=== PATIENT | female | born 1950 | race Caucasian/White ===

== ENCOUNTER 2018-06-15 08:29 | Outpatient (CLI) | payer MEDICARE, MEDICAID ==
[2018-06-15 09:10] LABS: BASOPHILS # (AUTO) 0.1 10^3/uL (0.0-0.1); BASOPHILS % (AUTO) 1.1 %; EOSINOPHILS # (AUTO) 0.2 10^3/uL (0.0-0.7); EOSINOPHILS % (AUTO) 2.8 %; HGB - HEMOGLOBIN 13.9 g/dL (12.0-16.0); LYMPHOCYTES # (AUTO) 3.1 10^3/uL (1.5-3.5); LYMPHOCYTES % (AUTO) 45.2 %; MEAN CORPUSCULAR HEMOGLOBIN 30.7 pg (27.0-31.0); MEAN CORPUSCULAR HGB CONC 34.5 g/dL (32.0-36.0); MEAN CORPUSCULAR VOLUME 88.9 fL (81.0-99.0); MEAN PLATELET VOLUME 7.4 fL (7.9-10.8); MONOCYTES # (AUTO) 0.5 10^3/uL (0.0-1.0); MONOCYTES % (AUTO) 7.3 %; NEUTROPHILS % (AUTO) 43.6 %; PLT - PLATELET COUNT 340 10^3/uL (130-450); RED BLOOD COUNT 4.54 10^6/uL (4.20-5.40); WHITE BLOOD COUNT 6.9 x10^3/uL (4.8-10.8)
[2018-06-15 09:19] LABS: ALBUMIN 4.5 g/dL (3.2-5.5); ALBUMIN/GLOBULIN RATIO 1.6 (1.0-2.2); BILIRUBIN,TOTAL 0.6 mg/dL (0.2-1.0); CALCIUM 9.1 mg/dL (8.5-10.3); CREATININE 0.4 mg/dL (0.4-1.0); TOTAL PROTEIN 7.3 g/dL (6.7-8.2)
[2018-06-15 11:48] LABS: THYROID STIMULATING HORMONE 2.83 uIU/mL (0.34-5.60)
[2018-06-15 11:50] LABS: FREE T4 (FREE THYROXINE) 0.93 ng/dL (0.58-1.64)
[2018-06-15 11:55] LABS: TOTAL T3 0.98 ng/mL (0.87-1.78)
== END 2018-06-15 08:30 | disposition home or self-care (01) ==
LOC: LAB 08:29
PROVIDERS: ATTEND Naprapath
DX: Z13.0 Encounter for screening for diseases of the blood and blood-forming organs and certain disorders involving the immune mechanism (principal); E06.3 Autoimmune thyroiditis; Z13.29 Encounter for screening for other suspected endocrine disorder; Z13.1 Encounter for screening for diabetes mellitus; Z13.228 Encounter for screening for other metabolic disorders; Z13.21 Encounter for screening for nutritional disorder
CPT/HCPCS: 36415; 80053; 82306; 84439; 84443; 84480; 84482; 85025; 86800

== ENCOUNTER 2018-06-15 17:49 | Outpatient (CLI) | payer MEDICARE, MEDICAID ==
--- NOTE | 2018-06-17 22:13 | Ultrasound Report ---
Reason: CHRONIC RLQ ABD PAIN HX OF UTERINE FIBROIDS Procedure Date: 06/15/2018 Accession Number: [id number] / [id number] Procedure: US - Pelvic w/Transvaginal CPT Code: FULL RESULT: EXAM: PELVIC ULTRASOUND EXAM DATE: 06/15/2018 05:58 PM. CLINICAL HISTORY: CHRONIC RLQ ABD PAIN HX OF UTERINE FIBROIDS. COMPARISON: CT 01/09/2016. TECHNIQUE: Realtime transabdominal pelvic scan performed to identify the uterus and adnexa and as an overview of other pelvic structures, followed by transvaginal scan to provide greater detail of the uterus and adnexa, with static image documentation. FINDINGS: Uterus: 8.6 x 6.8 x 5.7 cm. Anteverted position. Bulky and heterogeneous. Masses: Multiple intramural leiomyomas are present. The largest, in the anterior myometrium, measures 4.1 cm. Endometrium: Difficult to visualize, due to multiple leiomyomas distorting. Cervix: Unremarkable. Right Ovary: Not confidently identified. No right adnexal mass appreciated. Left Ovary: Not confidently identified. No left adnexal mass appreciated. Free Fluid: None. Other: None. IMPRESSION: Bulky, leiomyomatous uterus. Nonvisualization of the endometrium and both ovaries, due to leiomyomas. RADIA
== END 2018-06-15 17:50 | disposition home or self-care (01) ==
LOC: DI 17:49
PROVIDERS: ATTEND Naprapath
DX: D25.1 Intramural leiomyoma of uterus (principal); D25.9 Leiomyoma of uterus, unspecified; Z13.0 Encounter for screening for diseases of the blood and blood-forming organs and certain disorders involving the immune mechanism; Z13.1 Encounter for screening for diabetes mellitus; Z13.228 Encounter for screening for other metabolic disorders; Z13.21 Encounter for screening for nutritional disorder; Z13.29 Encounter for screening for other suspected endocrine disorder; E06.3 Autoimmune thyroiditis
CPT/HCPCS: 36415; 76830; 76856; 80053; 82306; 84439; 84443; 84480; 84482; 85025; 86800

== ENCOUNTER 2018-08-03 05:52 | Emergency (ER) | payer MEDICARE, MEDICAID ==
[2018-08-03 06:04] VITALS: BP 145/93
[2018-08-03 06:25] LABS: BASOPHILS % (AUTO) 0.7 %; EOSINOPHILS # (AUTO) 0.1 10^3/uL (0.0-0.7); EOSINOPHILS % (AUTO) 2.1 %; HGB - HEMOGLOBIN 13.4 g/dL (12.0-16.0); LYMPHOCYTES % (AUTO) 30.9 %; MEAN CORPUSCULAR HEMOGLOBIN 30.4 pg (27.0-31.0); MEAN CORPUSCULAR HGB CONC 32.7 g/dL (32.0-36.0); MEAN PLATELET VOLUME 7.3 fL (7.9-10.8); MONOCYTES # (AUTO) 0.6 10^3/uL (0.0-1.0); MONOCYTES % (AUTO) 8.9 %; NEUTROPHILS # (AUTO) 3.8 10^3/uL (1.5-6.6); NEUTROPHILS % (AUTO) 57.4 %; PLT - PLATELET COUNT 294 10^3/uL (130-450); RED BLOOD COUNT 4.43 10^6/uL (4.20-5.40); RED CELL DISTRIBUTION WIDTH 13.3 % (12.0-15.0); WHITE BLOOD COUNT 6.6 x10^3/uL (4.8-10.8)
[2018-08-03 06:32] LABS: BILIRUBIN,URINE NEGATIVE (NEGATIVE); GLUCOSE, URINE (UA) NEGATIVE (NEGATIVE); KETONES,URINE (UA) NEGATIVE (NEGATIVE); LEUKOCYTE ESTERASE, URINE NEGATIVE (NEGATIVE); NITRITE,URINE NEGATIVE (NEGATIVE); OCCULT BLOOD,URINE TRACE-INTA (NEGATIVE); PH,URINE 6.5 PH (5.0-7.5); PROTEIN,URINE NEGATIVE (NEGATIVE); UROBILINOGEN,URINE 0.2 (NORMAL) E.U./dL (NORMAL)
[2018-08-03 06:37] LABS: ALBUMIN 4.3 g/dL (3.2-5.5); ALBUMIN/GLOBULIN RATIO 1.5 (1.0-2.2); BILIRUBIN,TOTAL 0.6 mg/dL (0.2-1.0); CALCIUM 9.2 mg/dL (8.5-10.3); CREATININE 0.5 mg/dL (0.4-1.0); TOTAL PROTEIN 7.2 g/dL (6.7-8.2)
[2018-08-03 06:40] LABS: CLARITY,URINE CLEAR (CLEAR)
--- NOTE | 2018-08-03 07:34 | ED Physician Documentation ---
PD HPI ABD PAIN - Stated complaint Stated Complaint: ABD PX - Chief complaint Chief Complaint: Abd Pain - History obtained from History obtained from: Patient - History of Present Illness Timing - onset: How many years ago (many) Timing - duration: Days (2) Timing - details: Gradual onset, Still present, Waxing and waning Quality: Sharp, Pain Location: RLQ Improved by: Laying still Worsened by: Moving, Breathing, Position, Palpation. No: Eating Associated symptoms: No: Fever, Nausea, Vomiting, Hematemesis, Diarrhea, Constipation, Melena, Hematochezia, Dysuria, Hematuria, Chest pain, Dizzy, Near syncope / syncope, Loss of appetite, Weight loss, Vaginal bleeding Similar symptoms before: Diagnosis (uterine fibroid, musculoskeletal pain) Recently seen: Clinic, Emergency Dept - Additional information Additional information: 68-year-old female with a history of hashimotos thyroiditis and arthritis has a history of right lower quadrant abdominal pain that is present daily and associated with movement and position has had an increase in her symptoms of pain over the past 2 days. She indicates that she has had more of this pain this year than previously and she has been into see a customer advocate up at [facility] and she is been into see physicians at [facility] in [place]. She has had workup including CT and ultrasound more than one time. She does know she has uterine fibroids which are large and calcified. She has some reservation about the recommendation for hysterectomy. She does state that this pain is the same pain that she has had previously and not a new pain. She has not had fever she has not had new or different symptoms. Review of Systems Constitutional: denies: Fever Eyes: denies: Decreased vision Ears: denies: Ear pain Nose: denies: Rhinorrhea / runny nose, Congestion Throat: denies: Sore throat Cardiac: denies: Chest pain / pressure, Palpitations Respiratory: reports: Dyspnea. denies: Cough GI: reports: Abdominal Pain. 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 INSPECTOR: Fibroids : None HEENT: None Psych: None Musculoskeletal: Rheumatoid arthritis Derm: None - Past Surgical History Past Surgical History: Yes General: Appendectomy /RUG INSPECTOR: section - Present Medications Home Medications: Ambulatory Orders Medication Instructions Recorded Confirmed No Known Home Medications 08/03/18 08/03/18 - Allergies Allergies/Adverse Reactions: Allergies Allergy/AdvReac Type Severity Reaction Status Date / Time antibiotics Allergy Nausea Uncoded 08/03/18 06:03 - Social History Does the pt smoke?: No Smoking Status: Never smoker Does the pt drink ETOH?: Yes Does the pt have substance abuse?: No - Immunizations Immunizations are current?: No - POLST Patient has POLST: No PD ED PE NORMAL - Vitals Vital signs reviewed: Yes (hypertensive mild ) - General General: Alert and oriented X 3, No acute distress, Well developed/nourished - HEENT HEENT: Atraumatic, PERRL, EOMI - Neck Neck: Supple, no meningeal sign, No bony TTP - Cardiac Cardiac: RRR, No murmur - Respiratory Respiratory: No respiratory distress, Clear bilaterally - Abdomen Abdomen: Soft, Other (specific point tenderness deep lateral right lower quadrant inside the pelvic brim no garding or rebound or referred tenderness. No pain with valsalva but pain is worse with deep breath. ) - Back Back: No CVA TTP, No spinal TTP - Derm Derm: Normal color, Warm and dry, No rash - Extremities Extremities: No deformity, No edema - Neuro Neuro: Alert and oriented X 3, rn charge 2-12 intact, No motor deficit, No sensory deficit, Normal speech Eye Opening: Spontaneous Motor: Obeys Commands Verbal: Oriented GCS Score: 15 - Psych Psych: Normal mood, Normal affect Results - Vitals Vitals: Vital Signs - 24 hr 08/03/18 05:58 Temperature 36.8 C Heart Rate 96 Respiratory 18 Rate Blood Pressure 145/93 H O2 Saturation 100 Oxygen O2 Source Room air - Labs Labs: Laboratory Tests 08/03/18 08/03/18 08/03/18 06:08 06:15 06:15 WBC 6.6 RBC 4.43 Hgb 13.4 Hct 41.2 MCV 93.0 MCH 30.4 MCHC 32.7 RDW 13.3 Plt Count 294 MPV 7.3 L Neut # (Auto) 3.8 Lymph # (Auto) 2.0 [place] # (Auto) 0.6 Eos # (Auto) 0.1 Baso # (Auto) 0.0 Absolute Nucleated RBC 0.00 Nucleated RBC % 0.0 Sodium 136 Potassium 3.6 Chloride 100 L Carbon Dioxide 27 Anion Gap 9.0 BUN 15 Creatinine 0.5 Estimated GFR (MDRD) 122 Glucose 99 Calcium 9.2 Total Bilirubin 0.6 AST 22 ALT 21 Alkaline Phosphatase 82 Total Protein 7.2 Albumin 4.3 Globulin 2.9 Albumin/Globulin Ratio 1.5 Lipase 41 Urine Color YELLOW Urine Clarity CLEAR Urine pH 6.5 Ur Specific [place] 1.010 Urine Protein NEGATIVE Urine Glucose (UA) NEGATIVE Urine Ketones NEGATIVE Urine Occult Blood TRACE-INTA Urine Nitrite NEGATIVE Urine Bilirubin NEGATIVE Urine Urobilinogen 0.2 (NORMAL) Ur Leukocyte Esterase NEGATIVE Ur Microscopic Review NOT INDICATED Urine Culture Comments NOT INDICATED Procedures - Bedside sono Bedside sono by EMP: With use of bedside ultrasound the right kidney is imaged it is sonographically nontender there is some mild hydronephrosis. Examination of bladder shows there is urinary jets present from both left and right side. PD MEDICAL DECISION MAKING - ED course Complexity details: reviewed old records, reviewed results, re-evaluated patient, considered differential, d/w patient ED course: 68-year-old female who has had a problem with this specific pain for years has no specific change with the exception of increased pain for the past 2 days. She has had a recent workup including ultrasound of the pelvis and CT scan of the abdomen and pelvis. These all indicate presence of uterine fibroids and are likely the cause of this patient's pain. She has been reluctant to proceed with hysterectomy because of concerns of side effects of surgery. She has been looking for a physician to guide her through this process and she has not connected.Review of her blood work is nearly identical to blood work done 2 y ears ago for similar presentation. At that point she was referred to [facility] and to the surgical center. She did not follow-up there. She refuses pain medication today. I discussed the patient's results with her and have reviewed her scans and have pulled up mechanical service representative portions of the scans to share with the patient to detail the extent of the fibroids their position and their possible relation to her pain. She was appreciative of this attention and I have asked her to follow-up with [facility] and specifically she is wanting to follow-up with a woman customer advocate and I have referred her to to Dr. Blevins. I am not finding a specific new problem that requires emergent attention today. Departure - Departure Disposition: Home, Self Care Clinical Impression: Uterine fibroid Qualifiers: Uterine leiomyoma location: unspecified location Qualified Code(s): D25.9 - Leiomyoma of uterus, unspecified Instructions: ED Fibroids Follow-Up: Sherry Pierce DO [Provider Admit Priv/Credential] -
== END 2018-08-03 08:00 | disposition home or self-care (01) ==
LOC: ED 05:52
DX: D25.9 Leiomyoma of uterus, unspecified (principal); N13.30 Unspecified hydronephrosis; M06.9 Rheumatoid arthritis, unspecified
CPT/HCPCS: 36415; 80053; 81001; 81003; 83690; 85025; 87086; 99283

== ENCOUNTER 2019-03-29 18:27 | Emergency (ER) | payer MEDICARE, MEDICAID ==
[2019-03-29 19:30] LABS: BASOPHILS % (AUTO) 0.4 %; EOSINOPHILS # (AUTO) 0.2 10^3/uL (0.0-0.7); EOSINOPHILS % (AUTO) 2.1 %; HGB - HEMOGLOBIN 13.3 g/dL (12.0-16.0); LYMPHOCYTES # (AUTO) 2.7 10^3/uL (1.5-3.5); LYMPHOCYTES % (AUTO) 33.4 %; MEAN CORPUSCULAR HEMOGLOBIN 30.6 pg (27.0-31.0); MEAN CORPUSCULAR HGB CONC 32.6 g/dL (32.0-36.0); MEAN CORPUSCULAR VOLUME 93.8 fL (81.0-99.0); MEAN PLATELET VOLUME 9.5 fL (7.9-10.8); MONOCYTES # (AUTO) 0.6 10^3/uL (0.0-1.0); MONOCYTES % (AUTO) 7.7 %; NEUTROPHILS # (AUTO) 4.6 10^3/uL (1.5-6.6); NEUTROPHILS % (AUTO) 56.2 %; PLT - PLATELET COUNT 305 10^3/uL (130-450); RED BLOOD COUNT 4.35 10^6/uL (4.20-5.40); RED CELL DISTRIBUTION WIDTH 12.9 % (12.0-15.0); WHITE BLOOD COUNT 8.2 x10^3/uL (4.8-10.8)
[2019-03-29 19:43] LABS: ALBUMIN 4.3 g/dL (3.2-5.5); ALBUMIN/GLOBULIN RATIO 1.4 (1.0-2.2); BILIRUBIN,TOTAL 0.4 mg/dL (0.2-1.0); CALCIUM 9.8 mg/dL (8.5-10.3); CREATININE 0.6 mg/dL (0.4-1.0); MAGNESIUM 2.4 mg/dL (1.7-2.8); TOTAL PROTEIN 7.4 g/dL (6.7-8.2)
--- NOTE | 2019-03-29 20:15 | XRAY Report ---
Reason: dyspnea Procedure Date: 03/29/2019 Accession Number: [id number] / [id number] Procedure: XR - Chest 2 View X-Ray CPT Code: 54717 FULL RESULT: EXAM: CHEST RADIOGRAPHY EXAM DATE: 03/29/2019 07:37 PM. CLINICAL HISTORY: Dyspnea. COMPARISON: 08/21/2011 9:38 AM. TECHNIQUE: 2 views. FINDINGS: Lungs/Pleura: No focal opacities evident. No pleural effusion. No pneumothorax. Normal volumes. Mediastinum: Heart and mediastinal contours are unremarkable. Other: None. IMPRESSION: No acute cardiopulmonary process. RADIA
--- NOTE | 2019-03-29 20:25 | ED Physician Documentation ---
History of Present Illness - Stated complaint Stated Complaint: SOA - Chief complaint Chief Complaint: Cardiac - History obtained from History obtained from: Patient - History of Present Illness Timing: Yesterday Pain level now: 0 Improved by: nothing Worsened by: no exacerbating factors - Additonal information Additional information: c/o irregular palpitations since last night associated with sensation of "feeling my heart beating concentrated in my throat" (per patient). 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 intermittent mild dyspnea. diarrhea x 2 days. intermittent chest pressure associated with the palpitations Review of Systems Constitutional: denies: Fever, Chills, Sweats Cardiac: reports: Chest pain / pressure, Palpitations. denies: Pedal edema, Calf pain Respiratory: reports: Dyspnea, Cough. 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 : None HEENT: None Psych: None Musculoskeletal: Rheumatoid arthritis Derm: None - Past Surgical History Past Surgical History: Yes General: Appendectomy /CAR REPAIRER APPRENTICE: section - Present Medications Home Medications: Ambulatory Orders Medication Instructions Recorded Confirmed No Known Home Medications 08/03/18 08/03/18 - Allergies Allergies/Adverse Reactions: Allergies Allergy/AdvReac Type Severity Reaction Status Date / Time antibiotics Allergy Nausea Uncoded 08/03/18 06:03 - Social History Does the pt smoke?: No Smoking Status: Never smoker Does the pt drink ETOH?: Yes Does the pt have substance abuse?: No - Immunizations Immunizations are current?: No - POLST Patient has POLST: No PD ED PE NORMAL - Vitals Vital signs reviewed: Yes - General General: Alert and oriented X 3, No acute distress, Well developed/nourished - HEENT HEENT: Moist mucous membranes - Cardiac Cardiac: RRR, No murmur, No gallop, No rub - Respiratory Respiratory: No respiratory distress, Clear bilaterally - Abdomen Abdomen: Soft, Non tender - Derm Derm: Normal color, Warm and dry - Extremities Extremities: No edema Results - Vitals Vitals: Vital Signs - 24 hr 03/29/19 03/29/19 03/29/19 18:32 19:14 21:03 Temperature 36.5 C Heart Rate 95 77 74 Respiratory 14 16 16 Rate Blood Pressure 113/96 H 129/85 H 130/82 H O2 Saturation 99 100 98 Oxygen O2 Source Room air - EKG (time done) No standard instances Rate: Rate (enter#) (91) Rhythm: NSR Anthony: LAD Intervals: Normal [place] QRS: Normal Ischemia: Normal ST segments Other comments: Other comments (PACs) - Labs Labs: Laboratory Tests 03/29/19 03/29/19 03/29/19 19:23 19:23 19:23 WBC 8.2 RBC 4.35 Hgb 13.3 Hct 40.8 MCV 93.8 MCH 30.6 MCHC 32.6 RDW 12.9 Plt Count 305 MPV 9.5 Neut # (Auto) 4.6 Lymph # (Auto) 2.7 [place] # (Auto) 0.6 Eos # (Auto) 0.2 Baso # (Auto) 0.0 Absolute Nucleated RBC 0.00 Nucleated RBC % 0.0 Sodium 142 Potassium 4.2 Chloride 102 Carbon Dioxide 28 Anion Gap 12.0 BUN 13 Creatinine 0.6 Estimated GFR (MDRD) 99 Glucose 102 H Calcium 9.8 Magnesium 2.4 Total Bilirubin 0.4 AST 21 ALT 23 Alkaline Phosphatase 76 Troponin I High Sens 4.9 Total Protein 7.4 Albumin 4.3 Globulin 3.1 Albumin/Globulin Ratio 1.4 Lipase 47 - Rads (name of study) chest xray Radiology: Prelim report reviewed, See rad report PD MEDICAL DECISION MAKING - ED course Complexity details: reviewed results, re-evaluated patient, considered differential, d/w patient Departure - Departure Disposition: 01 Home, Self Care Clinical Impression: Chest pain, Heart palpitations Condition: Good Instructions: ED Chest Pain Atypical Unkn Cause, ED Palpitations Discharge Date/Time: 03/29/19 21:04
[2019-03-29 21:03] VITALS: BP 130/82
== END 2019-03-29 21:04 | disposition home or self-care (01) ==
LOC: ED 18:27
DX: R07.9 Chest pain, unspecified (principal); R00.2 Palpitations
CPT/HCPCS: 36415; 71046; 80053; 83690; 83735; 84484; 85025; 93005; 99283; 99284

== ENCOUNTER 2019-07-29 11:45 | Day surgery (SDC) | payer MEDICARE, MEDICAID ==
[~2019-07-29 11:45] MED LIST: SODIUM/POTASSIUM/MAG SULFATES 354 ML PREP KIT PO SCH
[2019-07-29] MEDS ORDERED: MIDAZOLAM 2 MG/2 ML VIAL IVP ONE (11:46)
[2019-07-29] MEDS ORDERED: fentaNYL 250 MCG/5 ML VIAL IVP ONE (11:46)
[2019-07-29] MEDS ORDERED: LACTATED RINGERS 1,000 ML IV ONE (11:52)
[2019-07-29 15:12] VITALS: BP 139/81
== END 2019-07-29 11:46 | disposition home or self-care (01) ==
LOC: SDS 11:45
PROVIDERS: ATTEND Internal Medicine Gastroenterology
PROC: 0DBN8ZZ Excision of Sigmoid Colon, Via Natural or Artificial Opening Endoscopic (ICD-10-PCS; 2019-07-29)
PROC: 0DBP8ZZ Excision of Rectum, Via Natural or Artificial Opening Endoscopic (ICD-10-PCS; principal; 2019-07-29 13:00)
DX: Z12.11 Encounter for screening for malignant neoplasm of colon (principal); D12.5 Benign neoplasm of sigmoid colon; D12.8 Benign neoplasm of rectum; K63.5 Polyp of colon; E06.3 Autoimmune thyroiditis; M06.9 Rheumatoid arthritis, unspecified; R42 Dizziness and giddiness
CPT/HCPCS: 45380; A9270; J3010; J7120

== ENCOUNTER 2020-03-31 16:53 | Outpatient (CLI) | payer MEDICARE, MEDICAID ==
--- NOTE | 2020-04-01 08:54 | Ultrasound Report ---
PROCEDURE: Head or Neck Soft Tissue INDICATIONS: THYROID NODULE TECHNIQUE: Real time scanning was performed of the neck region of interest, with image documentation . COMPARISON: Ultrasound reportedly dated 2011 not available in PACS. FINDINGS: No soft tissue neck abnormality seen bilaterally IMPRESSION: PROCEDURE: Head or Neck Soft Tissue INDICATIONS: THYROID NODULE TECHNIQUE: Real-time scanning was performed of the thyroid gland, with image documentation. COMPARISON: None FINDINGS: Right: Thyroid lobe measures 3.9 x 2.3 x 1.7 cm, and is homogeneous in echotexture. Left: Thyroid lobe measures 4.1 x 2.4 x 1.8 cm, and is homogenous in echotexture. Isthmus: 4 mm thick. Nodule number: One Location: Right middle lobe Size: 0.9 x 0.6 x 1.1 cm. Composition: Predominately solid Echogenicity: Hyperechoic Shape: wider than tall. Margins: Smooth Echogenic foci: None Total points: 3 ACR TI-RADS category: Mildly suspicious Nodule number: Two Location: Midinferior right lobe Size: 1.1 x 1.0 x 1.0 cm. Previously 0.8 x 0.4 x 0.5 Composition: Solid Echogenicity: Hypoechoic Shape: wider than tall. Margins: Smooth Echogenic foci: Punctate Total points: 7 ACR TI-RADS category: Highly suspicious Nodule number: Three Location: Inferior right lobe Size: 1.0 x 0.8 x 0.9 cm. Composition: Solid Echogenicity: Markedly hypoechoic Shape: wider than tall. Margins: Smooth Echogenic foci: None Total points: 4 ACR TI-RADS category: Moderately suspicious Nodule number: Four Location: Left lobe Size: 1.4 x 1.0 x 1.0 cm. Composition: Solid Echogenicity: Hypoechoic Shape: wider than tall. Margins: Smooth/irregular Echogenic foci: None Total points: 4 ACR TI-RADS category: Moderately suspicious Nodule number: 5 Location: Isthmus Size: 0.5 x 0.3 x 0.3 cm. Composition: Solid Echogenicity: Markedly hypoechoic Shape: wider than tall. Margins: Smooth Echogenic foci: None Total points: 4 ACR TI-RADS category: Moderately suspicious IMPRESSION: Recommend ultrasound-guided FNA for nodule 2 within the midinferior right lobe per consensus guidelin es as below. Recommend continued ultrasound surveillance for the remaining nodules. ACR TI-RADS definitions and recommendations: TI-RADS 1 (benign): 0 points. FNA not needed. TI-RADS 2 (not suspicious): 2 points. FNA not needed. TI-RADS 3 (mildly suspicious): 3 points. ? FNA if 2.5 cm or larger, follow up if 1.5 cm or larger (at 1, 3, and 5 years). TI-RADS 4 (moderately suspicious): 4-6 points. ? FNA if 1.5 cm or larger, follow up if 1 cm or larger (at 1, 2, 3, and 5 years). TI-RADS 5 (highly suspicious): 7 points or more. ? FNA if 1 cm or larger, follow up if 0.5 cm or larger (every year for 5 years). Reviewed by: Ace Guerrero MD on 04/01/2020 8:53 AM PDT Approved by: Ace Guerrero MD on 04/01/2020 8:53 AM PDT Station ID: [id number]
== END 2020-03-31 16:54 | disposition home or self-care (01) ==
LOC: DI 16:53
PROVIDERS: ATTEND Family Medicine
DX: E04.2 Nontoxic multinodular goiter (principal)
CPT/HCPCS: 76536

== ENCOUNTER 2020-12-15 12:28 | Emergency (ER) | payer MEDICARE, OTHER ==
--- NOTE | 2020-12-15 12:50 | ED Physician Documentation ---
PD HPI LOWER EXT INJURY - Stated complaint Stated Complaint: RIGHT FOOT INJURY - Chief complaint Chief Complaint: General - History obtained from History obtained from: Patient - History of Present Illness PD HPI LOW EXT INJURY LOCATION: Right, Foot Type of injury: Twist (stepped on uneven curb with inversion and pain lateral foot) Timing - onset: Yesterday Timing - duration: Days (1) Timing - details: Abrupt onset, Still present Worsened by: Moving, Palpating Associated symptoms: Swelling. 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 : None HEENT: None Psych: None Musculoskeletal: Rheumatoid arthritis Derm: None - Past Surgical History Past Surgical History: Yes General: Appendectomy /CLOTH WASHER OPERATOR: section - Present Medications Home Medications: Ambulatory Orders Medication Instructions Recorded Confirmed HYDROcod/ACETAM 5/325 [[place] 5/325] 1 ea PO Q6H PRN #18 tablet 12/15/20 Metoprolol Tartrate [Lopressor] 12.5 mg ORAL BID 12/15/20 12/15/20 - Allergies Allergies/Adverse Reactions: Allergies Allergy/AdvReac Type Severity Reaction Status Date / Time cephalexin [From Keflex] Allergy Diaphoresis Verified 12/15/20 12:44 gluten AdvReac Respiratory Verified 12/15/20 12:44 milk AdvReac congestion Verified 12/15/20 12:44 antibiotics Allergy upset Uncoded 12/15/20 12:44 stomach - Social History Does the pt smoke?: No Smoking Status: Never smoker Does the pt drink ETOH?: Yes Does the pt have substance abuse?: No - Immunizations Immunizations are current?: No - POLST Patient has POLST: No PD ED PE NORMAL - Vitals Vital signs reviewed: Yes - General General: Alert and oriented X 3, Well developed/nourished - Derm Derm: Normal color, Warm and dry - Extremities Extremities: Other (right foot with tenderness lateral mid foot over the proximal 5th MT area. No bruising. Normal sensation and color and movement in toes. ) - Neuro Neuro: Alert and oriented X 3, No motor deficit, No sensory deficit, Normal speech Results - Vitals Vitals: Vital Signs - 24 hr 12/15/20 12/15/20 12:40 14:09 Temperature 36.9 C Heart Rate 78 73 Respiratory 18 18 Rate Blood Pressure 123/76 134/83 H O2 Saturation 99 98 Oxygen O2 Source Room air PD MEDICAL DECISION MAKING - ED course Complexity details: reviewed results (proximal 5th MT fracture nondisplaced. ), re-evaluated patient, considered differential, d/w patient ED course: she states she is having right shoulder surgery next week. I don't think this injury will prohibit that as she would not be needing crutches/etc. Departure - Departure Disposition: 01 Home, Self Care Clinical Impression: Closed fracture of 5th metacarpal Qualifiers: Encounter type: initial encounter Metacarpal location: neck Fracture alignment: nondisplaced Laterality: right Qualified Code(s): S62.366A - Nondisplaced fracture of neck of fifth metacarpal bone, right hand, initial encounter for closed fracture Condition: Stable Record reviewed to determine appropriate education?: Yes Instructions: ED Fx Foot Follow-Up: Stefan Shah DO [Primary Care Provider] - Enrico Knight MD [Physician No Access] - Prescriptions: HYDROcod/ACETAM 5/325 [[place] 5/325] 1 ea PO Q6H PRN #18 tablet PRN Reason: Pain Comments: Use the firm soled shoe when up and around for the next 4 weeks for healing of the foot fracture. This will reduce the amount of motion and there and help with the pain. It also helps with the healing. Elevate and ice it often today and tomorrow for swelling. Tylenol 4 times a day or hydrocodone if needed for worse pain. Follow-up with your orthopedist. Discharge Date/Time: 12/15/20 14:31
[2020-12-15] MEDS ORDERED: HYDROcod/ACETAM 5/325 MG TABLET PO STA (13:06)
[2020-12-15] MEDS ORDERED: NAPROXEN 250 MG TABLET PO STA (13:07)
[2020-12-15 14:09] VITALS: BP 134/83
--- NOTE | 2020-12-15 14:33 | XRAY Report ---
PROCEDURE: Foot 3 View RT INDICATIONS: foot inversion with pain base 5th MT TECHNIQUE: 3 views of the foot were acquired. COMPARISON: None FINDINGS: Bones: Nondisplaced fifth metatarsal base fracture. No suspicious bony lesions. Soft tissues: No tibiotalar joint effusion. Achilles tendon appears normal. IMPRESSION: Nondisplaced fifth metatarsal base fracture. The above findings were discussed with Dr. Mark Wheeler on 12/15/2020 at 1:30 PM. Reviewed by: Robina Jacobson MD on 12/15/2020 2:31 PM PDT Approved by: Robina Jacobson MD on 12/15/2020 2:31 PM PDT Station ID: [id number]
== END 2020-12-15 14:31 | disposition home or self-care (01) ==
LOC: ED 12:28
DX: S92.354A Nondisplaced fracture of fifth metatarsal bone, right foot, initial encounter for closed fracture (principal); W01.0XXA Fall on same level from slipping, tripping and stumbling without subsequent striking against object, initial encounter; X50.1XXA Overexertion from prolonged static or awkward postures, initial encounter; Y93.01 Activity, walking, marching and hiking; Y92.480 Sidewalk as the place of occurrence of the external cause
CPT/HCPCS: 73630; 99283; A9270

== ENCOUNTER 2021-08-20 13:28 | Outpatient (CLI) | payer MEDICARE ==
--- NOTE | 2021-08-20 17:28 | XRAY Report ---
PROCEDURE: Cervical Spine 2 View INDICATIONS: CERVICALGIA TECHNIQUE: 3 view(s) of the cervical spine were acquired. COMPARISON: None. FINDINGS: Bones: No fractures or dislocations to the T1 level. The lateral masses of C1 appear intact on the odontoid view. No suspicious bony lesions. Moderate C4-C5 and C5-C6 degenerative disease. Mild C3-C4 and C6-C7 degenerative disc disease. Mild C6-C7 and C7-T1 facet arthropathy. Soft tissues: No prevertebral soft tissue swelling. IMPRESSION: 1. Multilevel degenerative disc disease. 2. Multilevel facet arthropathy. 3. No fracture. No acute osseous lesion. If there is continued clinical concern for pathology, then M RI should be considered for further evaluation. Reviewed by: Keila Blandon MD, PhD on 08/20/2021 5:27 PM PST Approved by: Keila Blandon MD, PhD on 08/20/2021 5:27 PM PST Station ID: [id number]
== END 2021-08-20 13:29 | disposition home or self-care (01) ==
LOC: DI 13:28
PROVIDERS: ATTEND Family Medicine
DX: M47.812 Spondylosis without myelopathy or radiculopathy, cervical region (principal); M50.31 Other cervical disc degeneration, high cervical region

== ENCOUNTER 2022-06-30 12:18 | Outpatient (CLI) | payer MEDICARE | END 2022-06-30 12:19 | disposition short-term general hospital (02) | LOC: EMS 12:18 | DX: S99.912A Unspecified injury of left ankle, initial encounter (principal); X50.9XXA Other and unspecified overexertion or strenuous movements or postures, initial encounter; Y93.K1 Activity, walking an animal; Y92.481 Parking lot as the place of occurrence of the external cause | CPT/HCPCS: A0425; A0427 ==

== ENCOUNTER 2022-09-03 08:28 | Outpatient (CLI) | payer MEDICARE ==
[2022-09-03 08:58] LABS: BASOPHILS % (AUTO) 0.4 %; EOSINOPHILS # (AUTO) 0.2 10^3/uL (0.0-0.7); EOSINOPHILS % (AUTO) 2.7 %; HCT - HEMATOCRIT 39.8 % (37.0-47.0); HGB - HEMOGLOBIN 12.8 g/dL (12.0-16.0); LYMPHOCYTES # (AUTO) 3.1 10^3/uL (1.5-3.5); MEAN CORPUSCULAR HEMOGLOBIN 29.3 pg (27.0-31.0); MEAN CORPUSCULAR HGB CONC 32.2 g/dL (32.0-36.0); MEAN CORPUSCULAR VOLUME 91.1 fL (81.0-99.0); MEAN PLATELET VOLUME 9.5 fL (7.9-10.8); MONOCYTES # (AUTO) 0.6 10^3/uL (0.0-1.0); NEUTROPHILS # (AUTO) 3.4 10^3/uL (1.5-6.6); NEUTROPHILS % (AUTO) 46.6 %; PLT - PLATELET COUNT 329 10^3/uL (130-450); RED BLOOD COUNT 4.37 10^6/uL (4.20-5.40); RED CELL DISTRIBUTION WIDTH 13.4 % (12.0-15.0); WHITE BLOOD COUNT 7.3 x10^3/uL (4.8-10.8)
[2022-09-03 09:14] LABS: ALBUMIN 4.1 g/dL (3.2-5.5); ALBUMIN/GLOBULIN RATIO 1.2 (1.0-2.2); CALCIUM 8.9 mg/dL (8.5-10.3); CREATININE 0.6 mg/dL (0.4-1.0); CRP - C-REACTIVE PROTEIN 1.4 mg/dL (0-1.0); POTASSIUM 3.9 mmol/L (3.5-5.0); TOTAL PROTEIN 7.4 g/dL (6.7-8.2)
[2022-09-03 09:26] LABS: THYROID STIMULATING HORMONE 2.91 uIU/mL (0.34-5.60)
[2022-09-03 09:28] LABS: FREE T3 3.08 pg/mL (2.5-3.9); FREE T4 (FREE THYROXINE) 0.89 ng/dL (0.58-1.64)
[2022-09-03 10:18] LABS: RHEUMATOID FACTOR NEGATIVE (Negative)
== END 2022-09-03 08:29 | disposition home or self-care (01) ==
LOC: LAB 08:28
PROVIDERS: ATTEND Family Medicine
DX: M06.9 Rheumatoid arthritis, unspecified (principal); H35.30 Unspecified macular degeneration; R00.2 Palpitations; E06.3 Autoimmune thyroiditis
CPT/HCPCS: 36415; 80053; 81599; 84439; 84443; 84481; 85025; 85651; 86038; 86140; 86430

== ENCOUNTER 2022-09-28 12:38 | Outpatient (CLI) | payer MEDICARE ==
--- NOTE | 2022-09-28 14:17 | DEXA Report ---
PROCEDURE: Dexa Spine and/or Hip INDICATIONS: POST MENOPAUSAL TECHNIQUE: Dual energy x-ray absorptiometry (DXA) was performed on a [employer]. Regions measur ed are the AP Spine, femoral neck, and if needed forearm. COMPARISON: None. FINDINGS: Lumbar Spine: Bone Mineral Density 0.876 g/cm/cm,T score -2.5, Left Femoral Neck: Bone Mineral Density 0.756 g/cm/cm, T score -2.0, Left Hip: Bone Mineral Density 0.793 g/cm/cm,T score -1.7, (T score greater or equal to -1.0: NORMAL) (T score from -1.1 to -2.4: OSTEOPENIA) (T score less than or equal to -2.5 to: OSTEOPOROSIS) Impression: Osteoporosis Patients with diagnosis of osteoporosis or osteopenia should have regular bone mineral density assess ment. For those eligible for Medicare, routine testing is allowed once every 2 years. Testing frequ ency can be increased for patients who have rapidly progressing disease or for those who are receivin g medical therapy to restore bone mass. Reviewed by: Kishor Sierra MD on 09/28/2022 2:15 PM PST Approved by: Kishor Sierra MD on 09/28/2022 2:15 PM PST Station ID: [id number]
== END 2022-09-28 12:39 | disposition home or self-care (01) ==
LOC: DI 12:38
PROVIDERS: ATTEND Family Medicine
DX: M81.0 Age-related osteoporosis without current pathological fracture (principal); Z78.0 Asymptomatic menopausal state

== ENCOUNTER 2022-12-06 11:38 | Outpatient (CLI) | payer MEDICARE ==
--- NOTE | 2022-12-06 13:12 | XRAY Report ---
PROCEDURE: Hip w/Pelvis 2-3V RT INDICATIONS: HIP JOINT PAIN,RIGHT/RHEUMATOID ARTHRITIS,CHRONIC TECHNIQUE: AP pelvis with lateral view(s) of the right hip(s). COMPARISON: None. FINDINGS: Bones: No fractures or dislocations. No suspicious bony lesions. Moderate multiple osteophytes, d efinite narrowing of joint space, small pseudocystic areas with sclerotic yung and possible deformit y of bone contour. Soft tissues: No suspicious soft tissue calcifications or masses. IMPRESSION: No acute bony abnormality. Kellgren-Jim scale of osteoarthritis: Grade 3: moderate osteoarthritis. Reviewed by: Thony Winters on 12/06/2022 1:11 PM PDT Approved by: Thony Winters on 12/06/2022 1:11 PM PDT Station ID: [id number]
== END 2022-12-06 11:39 | disposition home or self-care (01) ==
LOC: DI 11:38
PROVIDERS: ATTEND Family Medicine
DX: M25.551 Pain in right hip (principal); M06.9 Rheumatoid arthritis, unspecified

== ENCOUNTER 2023-08-14 09:53 | Outpatient (CLI) | payer MEDICARE ==
[2023-08-14 10:08] LABS: BASOPHILS % (AUTO) 0.4 %; EOSINOPHILS # (AUTO) 0.3 10^3/uL (0.0-0.7); EOSINOPHILS % (AUTO) 3.1 %; HCT - HEMATOCRIT 42.1 % (37.0-47.0); HGB - HEMOGLOBIN 13.6 g/dL (12.0-16.0); LYMPHOCYTES # (AUTO) 3.2 10^3/uL (1.5-3.5); LYMPHOCYTES % (AUTO) 40.2 %; MEAN CORPUSCULAR HEMOGLOBIN 29.8 pg (27.0-31.0); MEAN CORPUSCULAR HGB CONC 32.3 g/dL (32.0-36.0); MEAN CORPUSCULAR VOLUME 92.1 fL (81.0-99.0); MONOCYTES # (AUTO) 0.7 10^3/uL (0.0-1.0); MONOCYTES % (AUTO) 8.5 %; NEUTROPHILS # (AUTO) 3.8 10^3/uL (1.5-6.6); NEUTROPHILS % (AUTO) 47.4 %; PLT - PLATELET COUNT 330 10^3/uL (130-450); RED BLOOD COUNT 4.57 10^6/uL (4.20-5.40); RED CELL DISTRIBUTION WIDTH 13.2 % (12.0-15.0)
[2023-08-14 10:22] LABS: BUN - BLOOD UREA NITROGEN 13 mg/dL (6-20); CALCIUM 9.4 mg/dL (8.5-10.3); CARBON DIOXIDE - CO2 29 mmol/L (21-32); CHLORIDE 103 mmol/L (101-111); CHOL/HDL RATIO 5.7 (<4.4); CHOLESTEROL 308 mg/dL; CREATININE 0.6 mg/dL (0.6-1.3); GFR - MDRD 98 (>89); GLUCOSE 94 mg/dL (74-104); HDL CHOLESTEROL 54 mg/dL; LDL CHOLESTEROL,CALCULATED 221 mg/dL; LDL/HDL RATIO 4.1 (<4.4); POTASSIUM 4.1 mmol/L (3.5-4.5); SODIUM 139 mmol/L (135-145); TRIGLYCERIDES 164 mg/dL (48-352); VLDL CHOLESTEROL 33 mg/dL
== END 2023-08-14 09:54 | disposition home or self-care (01) ==
LOC: LAB 09:53
PROVIDERS: ATTEND Internal Medicine Cardiovascular Disease
DX: E78.5 Hyperlipidemia, unspecified (principal)
CPT/HCPCS: 36415; 80048; 80061; 83721; 85025

== ENCOUNTER 2023-09-18 08:45 | Outpatient (CLI) | payer MEDICARE ==
[2023-09-18 09:08] LABS: BASOPHILS % (AUTO) 0.4 %; EOSINOPHILS # (AUTO) 0.2 10^3/uL (0.0-0.7); EOSINOPHILS % (AUTO) 2.8 %; HCT - HEMATOCRIT 39.4 % (37.0-47.0); HGB - HEMOGLOBIN 12.8 g/dL (12.0-16.0); LYMPHOCYTES # (AUTO) 3.5 10^3/uL (1.5-3.5); LYMPHOCYTES % (AUTO) 45.8 %; MEAN CORPUSCULAR HEMOGLOBIN 29.8 pg (27.0-31.0); MEAN CORPUSCULAR HGB CONC 32.5 g/dL (32.0-36.0); MEAN CORPUSCULAR VOLUME 91.8 fL (81.0-99.0); MEAN PLATELET VOLUME 9.1 fL (7.9-10.8); MONOCYTES # (AUTO) 0.7 10^3/uL (0.0-1.0); MONOCYTES % (AUTO) 8.6 %; NEUTROPHILS # (AUTO) 3.2 10^3/uL (1.5-6.6); NEUTROPHILS % (AUTO) 42.1 %; PLT - PLATELET COUNT 315 10^3/uL (130-450); RED BLOOD COUNT 4.29 10^6/uL (4.20-5.40); RED CELL DISTRIBUTION WIDTH 13.3 % (12.0-15.0); WHITE BLOOD COUNT 7.6 x10^3/uL (4.8-10.8)
[2023-09-18 09:25] LABS: ALBUMIN 4.2 g/dL (3.2-5.5); ALBUMIN/GLOBULIN RATIO 1.5 (1.0-2.2); BILIRUBIN,TOTAL 0.3 mg/dL (0.2-1.0); CALCIUM 9.5 mg/dL (8.5-10.3); CREATININE 0.5 mg/dL (0.6-1.3); CRP - C-REACTIVE PROTEIN 1.8 mg/dL (<0.5); POTASSIUM 3.9 mmol/L (3.5-4.5)
[2023-09-18 09:36] LABS: THYROID STIMULATING HORMONE 3.25 uIU/mL (0.34-5.60)
[2023-09-18 11:11] LABS: RHEUMATOID FACTOR NEGATIVE (Negative)
[2023-09-20 16:08] LABS: ANTINUCLEAR ANTIBODIES IFA Negative (.)
== END 2023-09-18 08:46 | disposition home or self-care (01) ==
LOC: LAB 08:45
PROVIDERS: ATTEND Orthopaedic Surgery
DX: Z01.818 Encounter for other preprocedural examination (principal); M06.9 Rheumatoid arthritis, unspecified; H35.30 Unspecified macular degeneration; R00.2 Palpitations; E06.3 Autoimmune thyroiditis
CPT/HCPCS: 36415; 80053; 84439; 84443; 84481; 85025; 85651; 86038; 86140; 86430; 87640; 93005